=== PATIENT | male | born 1965 | race Caucasian/White ===

== ENCOUNTER 2021-10-29 20:51 | Emergency (ER) | payer OTHER ==
[~2021-10-29] VITALS: Ht 175.3 cm; Wt 90.7 kg
[2021-10-29 20:54] VITALS: BP_SYST 130
--- NOTE | 2021-10-29 20:54 | NUR ---
Placed in room 6 . Placed on monitoring analyst, blood pressure machine and pulse oximeter. To gown for exam. Side rails up. Report given to Mile LOPEZ(reg).
[2021-10-29] MEDS ORDERED: MORPHINE 4 MG INJ. 4 MG/ML VIAL IVP ONE (21:15)
[2021-10-29] MEDS ORDERED: ONDANSETRON HCL 4 MG/2 ML VIAL IVP ONE (21:15)
[2021-10-29] MEDS ORDERED: NACL 0.9% 1,000 ML IV ONE (21:15)
[2021-10-29 21:59] LABS: HEMOGLOBIN 14.9 g/dL (14.0-18.0); MEAN CORPUSCULAR HEMOGLOBIN 28 pg (27-31); MEAN CORPUSCULAR HGB CONC 33 % (32-36)
--- NOTE | 2021-10-29 22:00 | NUR ---
Pt BIB FIRE due to acute onset of epigastric pain that radiates to RLQ while driving. Pt reports headache and neck pain as well. Denies any NV. Denies any PMH. Arrived to ED in no acute distress, breathing adequately on RA.
[2021-10-29 22:06] LABS: BASOPHILS % (AUTO) 0.6 % (0.0-2.0); EOSINOPHILS # (AUTO) 0.2 K/uL (0.0-0.4); HEMATOCRIT 44.5 % (36-54); LYMPHOCYTES # (AUTO) 1.1 K/uL (1.0-5.5); MEAN CORPUSCULAR VOLUME 83 fL (79.0-98.0); MONOCYTES # (AUTO) 0.6 K/uL (0.0-1.0); MONOCYTES % (AUTO) 6.8 % (1.7-9.3); NEUTROPHILS # (AUTO) 6.6 K/uL (1.8-7.7); NEUTROPHILS % (AUTO) 77.6 % (40.0-70.0); PLATELET COUNT (AUTO) 200 K/uL (130-430); RED BLOOD CELL COUNT(AUTO) 5.37 MIL/uL (4.2-6.2); RED CELL DISTRIBUTION WIDTH 14.5 % (9.0-15.0); WHITE BLOOD COUNT (AUTO) 8.5 K/uL (4.8-10.8)
[2021-10-29 22:13] LABS: ANION GAP 6 (5-15); CALCIUM 8.4 mg/dL (8.4-11.0); CHLORIDE 104 mmol/L (98-107); CREATININE 1.17 mg/dL (0.55-1.30); GLUCOSE 104 mg/dL (70-99); POTASSIUM 3.9 mmol/L (3.5-5.1); SODIUM SERUM 139 mmol/L (136-145); UREA NITROGEN, BLOOD 17 mg/dL (8-21)
[2021-10-29 22:17] LABS: ALANINE AMINOTRANSFERASE 53 U/L (12-78); ALBUMIN 3.4 g/dL (3.4-4.8); ASPARTATE AMINOTRANSFERASE 58 U/L (10-37); TOTAL BILIRUBIN 0.5 mg/dL (0.0-1.0)
[2021-10-29 22:26] LABS: GFR AFRICAN AMERICAN 83 mL/min (>90)
[2021-10-29] MEDS ORDERED: iohexoL 350 mgI/mL, 100 ML INFUS..BTL IV ONE (23:03)
--- NOTE | 2021-10-29 23:45 | NUR ---
Pt resting in bed in no apparent distress. Denies any pain/distress at this time.
--- NOTE | 2021-10-30 01:25 | NUR ---
Patient given written and verbal discharge instructions and verbalizes understanding. ER MD Mulligan discussed with patient the results and treatment provided. Patient in stable condition. ID arm band removed. IV catheter removed intact and dressing applied, no active bleeding. Rx of given. Patient educated on pain management and to follow up with PMD. Pain Scale 0/10 at time of discharge. Opportunity for questions provided and answered. Medication side effect fact sheet provided.
[2021-10-30 01:34] VITALS: BP_SYST 130
== END 2021-10-30 01:23 | disposition home or self-care (01) ==
LOC: SED 20:51
DX: N42.89 Other specified disorders of prostate (principal); R10.13 Epigastric pain; R42 Dizziness and giddiness; R03.0 Elevated blood-pressure reading, without diagnosis of hypertension; Z79.899 Other long term (current) drug therapy
CPT/HCPCS: 99285; 74177; 96374; 96361; 96375; 80053; 85025; 84484; 36415; 93005; 76376; Q9967; J2405; J2270; J7030